=== PATIENT | female | born 1970 | race Caucasian/White ===

== ENCOUNTER 2017-08-03 19:32 | Emergency (ER) | payer OTHER ==
[~2017-08-03] VITALS: Ht 160 cm; Wt 42.3 kg
[2017-08-03] MEDS ORDERED: MEDROL DOSEPAK4 MG PO (21:12)
[2017-08-03] MEDS ORDERED: NORCO 5/3251 TABLET PO (21:12)
[2017-08-03] MEDS ORDERED: [UNRECOGNIZED DRUG - REMARK] (21:14)
[2017-08-03 21:48] VITALS: BP 124/66
== END 2017-08-03 21:49 | disposition home or self-care (01) ==
LOC: EME 19:32
DX: M54.5 Low back pain (principal); G89.29 Other chronic pain; M54.16 Radiculopathy, lumbar region; J45.909 Unspecified asthma, uncomplicated; F17.200 Nicotine dependence, unspecified, uncomplicated; Z88.0 Allergy status to penicillin
CPT/HCPCS: 72100; 99281; 99284; J7512